=== PATIENT | male | born 1970 | race African-American/Black ===

== ENCOUNTER 2016-11-01 23:30 | Inpatient (IN) ==
[2016-11-01] MEDS ORDERED: ONDANSETRON 4 MG/2 ML VIAL ONE (23:42)
[2016-11-01] MEDS ORDERED: HYDROmorphone 2 MG/1 ML VIAL ONE (23:43)
[2016-11-01] MEDS ORDERED: ceFAZolin 1,000 MG VIAL ONE (23:43)
[2016-11-01] MEDS ORDERED: HYDROmorphone 2 MG/1 ML VIAL IV STA (23:47)
[2016-11-01] MEDS ORDERED: DIPH/TET/ACEL PERT BOOSTER VACCINE 0.5 ML VIAL IM ONE ×2 (23:47→23:57)
[2016-11-01] MEDS ORDERED: LACTATED RINGERS 1,000 ML IV STA (23:47)
[2016-11-01] MEDS ORDERED: ONDANSETRON 4 MG/2 ML VIAL IV STA (23:48)
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
[2016-11-01 23:55] LABS: Basophils # 0.1 10*3/uL (0.0-0.2); Basophils % 0.5 % (0.0-0.8); Eosinophils # 0.2 10*3/uL (0.0-0.87); Eosinophils % 1.3 % (0.00-10.9); Hematocrit 41.3 VOL% (42.0-52.0); Hemoglobin 14.2 GM/DL (14.0-18.0); Immature Granulocytes % 0.7 %; Immature Granulocytes Absolute 0.08 #; Lymphocytes # 3.8 10*3/uL (1.4-4.0); Mean Corpuscular HGB Conc 34.4 GM/DL (32-36); Mean Corpuscular Hemoglobin 33 PG (27-34); Mean Corpuscular Volume 94.5 FL (87-102); Mean Platelet Volume 10.6 FL (9.6-12.0); Monocytes # 0.7 10*3/uL (0.11-0.8); Monocytes % 5.5 % (1.7-12.7); Neutrophils # 7.5 10*3/uL (1.4-7.4); Platelet Count 224 T/CUMM (130-400); Red Blood Count 4.37 MC/CUMM (3.8-5.5); Red Cell Distribution Width 13.1 % (9.3-17.3); White Blood Count 12.3 T/CUMM (4-12)
[2016-11-02 00:04] LABS: PT Patient Result 10.1 SECS; Partial Thromboplastin Time 23.8 SECS (0-40)
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
[2016-11-02 00:39] LABS: Calcium 8.4 MG/DL (8.5-10.1)
[2016-11-02 00:40] LABS: Albumin 4.1 G/DL (3.4-5.0); Bilirubin,Total 1.2 MG/DL (0.2-1.0); Total Protein 8.6 G/DL (6.4-8.3)
[2016-11-02 00:41] LABS: Osmolality,Calculated 272.7 MOS/KG (273-304); Potassium 5.7 MMOL/L (3.5-5.1)
[2016-11-02 00:44] LABS: Apearance,Urine CLEAR (Clear); Bilirubin,Urine Negative (Negative); Blood, Urine Small mg/dL (Negative); Glucose,Urine (UA) Negative (Negative); Hyaline Casts,Urine 6 /LPF (0-3); Ketones,Urine Negative (Negative); Mucus,Urine Occasional /LPF (Occasional); Nitrite,Urine Negative (Negative); Protein,Urine Negative; RBC,Urine <1 /HPF (0-4); Urine Color Yellow (Yellow); Urine Specific Gravity 1.005 (1.001-1.035); Urine Urobilinogen < 2.0 EU/DL (0.2-1.0); WBC,Urine <1 /HPF (0-6)
[2016-11-02 00:54] LABS: Barbiturates Screen,Urine Negative (Negative); Benzodiazepines Screen,Urine Negative (Negative); Cannabinoid Screen,Urine Positive (Negative); Opiate Screen,Urine Positive (Negative); Phencyclidine Screen,Urine Negative (Negative)
--- NOTE | 2016-11-02 00:57 | Event Note ---
11/02/2016 00 56 hours CTA was performed of the lower extremity appears that the vessels are intact and look without any evidence of injury.
[2016-11-02] MEDS ORDERED: ACETAMINOPHEN 325 MG TABLET PO PRN (01:05)
[2016-11-02] MEDS ORDERED: ALUMINUM/MAGNES/SIMETH MAX STR 30 ML UDCUP PO PRN (01:05)
[2016-11-02] MEDS ORDERED: ONDANSETRON 4 MG/2 ML VIAL IV PRN ×2 (01:05→11:41)
[2016-11-02] MEDS ORDERED: HYDROmorphone 2 MG/1 ML VIAL ONE ×2 (01:46→11:31)
[2016-11-02] MEDS: HYDROmorphone 2 MG/1 ML VIAL IV PRN ×5 (02:02→11:40)
[2016-11-02] MEDS: DEXTROSE 5% NACL 0.45% 1,000 ML IV SCH ×2 (02:42→12:15)
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
--- NOTE | 2016-11-02 07:13 | XRay Report ---
Referring Physician: Geoff Wood Exam: XR chest 1V portable Date: November 02, 2016 at 1:16 AM Reason: Preoperative respiratory evaluation for leg fracture Comparison: None Findings: The cardiac silhouette is normal in size. No focal consolidation, pneumothorax or pleural effusion is identified. No acute osseous process is seen. Impression: No acute cardiopulmonary process is identified. PROCEDURE INTERPRETED AT [facility] DEPARTMENT OF RADIOLOGY Final Report Signed by: Dr. Mckayla Baez
--- NOTE | 2016-11-02 07:38 | EKG Report ---
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
--- NOTE | 2016-11-02 07:45 | Orthopedic Consult Note ---
History of Present Illness Chief complaint: Left tibia fracture History of present illness: Mr. Carey is a 46 year old male See dictated report Home Medications Medication Instructions Recorded Confirmed Type No Known Home Medications [No 11/02/16 11/02/16 History Known Home Medications] Allergies Allergy/AdvReac Type Severity Reaction Status Date / Time No Known Allergies Allergy Unverified 11/01/16 23:56 Medical,Surgical,& Family Hx - Medical History Cardio: No history of: Hypertension Endocrine: No history of: Diabetes Mellitus (IDDM) Gastrointestinal: History of: Hemorrhoids Musculoskeletal: History of: Musculoskeletal Problems (SCOLIOSIS) - Family History Family History: Reports;: Family Heart Disease (FATHER (TRIPLE BYPASS), MOTHER ( STENTS)) - Social History Smoking Status: Current every day smoker Frequency of Alcohol Use: Frequently Type of Drug Use: Marijuana Exam - Constitutional Vitals: Period Temp Pulse Resp BP Sys/Tomlinson Pulse Ox Last 24 Hr 97.5 F-98.1 F 84-115 20-20 113-114/67-69 99-99 Results - Labs CBC & BMP: 11/01/16 23:42 11/01/16 23:42 Specialty Discharge - Follow Up or Referrals
[2016-11-02 08:46] LABS: Basophils # 0.1 10*3/uL (0.0-0.2); Basophils % 0.4 % (0.0-0.8); Eosinophils % 0.3 % (0.00-10.9); Hematocrit 37.4 VOL% (42.0-52.0); Hemoglobin 13.2 GM/DL (14.0-18.0); Immature Granulocytes % 0.6 %; Immature Granulocytes Absolute 0.07 #; Lymphocytes # 2.4 10*3/uL (1.4-4.0); Lymphocytes % 18.7 % (21.2-54.2); Mean Corpuscular HGB Conc 35.3 GM/DL (32-36); Mean Corpuscular Hemoglobin 33 PG (27-34); Mean Corpuscular Volume 92.1 FL (87-102); Mean Platelet Volume 9.7 FL (9.6-12.0); Monocytes % 7.8 % (1.7-12.7); Neutrophils # 9.1 10*3/uL (1.4-7.4); Neutrophils % 72.2 % (38.7-73.9); Platelet Count 188 T/CUMM (130-400); Red Blood Count 4.06 MC/CUMM (3.8-5.5); Red Cell Distribution Width 13.1 % (9.3-17.3); White Blood Count 12.6 T/CUMM (4-12)
[2016-11-02 09:11] LABS: Calcium 8.2 MG/DL (8.5-10.1); Osmolality,Calculated 271.7 MOS/KG (273-304); Potassium 4.3 MMOL/L (3.5-5.1)
[2016-11-02] MEDS ORDERED: SODIUM CHLORIDE 0.9% 100 ML IV ONE (09:12)
[2016-11-02] MEDS: DOCUSATE SODIUM 100 MG CAPSULE PO SCH ×2 (09:20→20:00)
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
[2016-11-02] MEDS ORDERED: MAGNESIUM HYDROXIDE SUSP 30 ML UDCUP PO PRN (09:29)
[2016-11-02] MEDS ORDERED: PROMETHAZINE 25 MG/1 ML VIAL IM PRN (09:29)
[2016-11-02] MEDS: PANTOPRAZOLE 40 MG VIAL IV SCH (09:33)
[2016-11-02] MEDS ORDERED: LIDOCAINE 1% 5 ML VIAL ONE (09:47)
[2016-11-02] MEDS ORDERED: ONDANSETRON 4 MG/2 ML VIAL ONE ×2 (09:47→11:31)
[2016-11-02] MEDS ORDERED: NEOSTIGMINE 10 MG/10 ML VIAL ONE (09:47)
[2016-11-02] MEDS ORDERED: PROPOFOL 200 MG/20 ML VIAL IV ONE (09:47)
[2016-11-02] MEDS ORDERED: ROCURONIUM 100 MG/10 ML VIAL IV ONE (09:47)
[2016-11-02] MEDS ORDERED: GLYCOPYRROLATE 0.4 MG/2 ML VIAL ONE (09:47)
[2016-11-02] MEDS ORDERED: PHENYLEPHRINE 1 MG/10 ML SYRINGE IV ONE (09:47)
[2016-11-02] MEDS: HYDROmorphone PCA 30 MG/30 ML SYRINGE IV SCH (11:45)
[2016-11-02] MEDS ORDERED: HYDROmorphone PCA 30 MG/30 ML SYRINGE IV ONE (11:45)
[2016-11-02] MEDS ORDERED: LACTATED RINGERS 1,000 ML IV SCH (12:00)
[2016-11-02] MEDS ORDERED: MIDAZOLAM 2 MG/2 ML VIAL ONE (13:25)
[2016-11-02] MEDS ORDERED: DESFLURANE 1 UNIT/15 MINUTE INH ONE (13:25)
[2016-11-02] MEDS ORDERED: ACETAMINOPHEN 1,000 MG/100 ML VIAL IV ONE (13:25)
[2016-11-02] MEDS ORDERED: fentaNYL 100 MCG/2 ML VIAL ONE (13:25)
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
--- NOTE | 2016-11-02 14:42 | XRay Report ---
XR tibia fibula LT Indication: I am nail tibia. Left leg fluoroscopy: 64 seconds. 7 captured images. Sequential fluoroscopic images of the left leg demonstrate a tibial IM nail securing a mid shaft fracture in anatomic alignment. Impression: Anatomic alignment following IM nail placement. PROCEDURE INTERPRETED AT [facility] DEPARTMENT OF RADIOLOGY Final Report Signed by: Dameon Sanchez M.D.
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
--- NOTE | 2016-11-03 09:34 | Orthopedic Progress Note ---
Orthopedics - Subjective Interval history: Appears comfortable neurovascular intact. 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
[2016-11-03] MEDS: DOCUSATE SODIUM 100 MG CAPSULE PO SCH ×2 (09:54→20:12)
[2016-11-03] MEDS: PANTOPRAZOLE 40 MG VIAL IV SCH (09:54)
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
[2016-11-03] MEDS: HYDROmorphone PCA 30 MG/30 ML SYRINGE IV SCH (19:43)
[2016-11-04] MEDS: DEXTROSE 5% NACL 0.45% 1,000 ML IV SCH (05:36)
[2016-11-04 07:48] VITALS: BP 133/77
[2016-11-04] MEDS: DOCUSATE SODIUM 100 MG CAPSULE PO SCH (08:29)
[2016-11-04] MEDS: PANTOPRAZOLE 40 MG VIAL IV SCH (08:29)
--- NOTE | 2016-11-04 08:30 | Orthopedic Progress Note ---
Orthopedics - Subjective Interval history: Comfortable mobilizing better tolerating p.o. pain medications ready for discharge instructed Exam - Constitutional Vitals: Period Temp Pulse Resp BP Sys/Tom[place]inson Pulse Ox Last 24 Hr 97.8 F-99.5 F 74-86 16-20 123-144/69-84 98-100 Results - Labs CBC & BMP: 11/02/16 08:18 11/02/16 08:18 Quality Measures - VTE Contraindication to Pharmacological VTE Prophylaxis: High Risk of Bleeding Specialty Discharge - Follow Up or Referrals Follow up with: Francisco Callejas Jr., MD [Physician] -
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
== END 2016-11-04 10:35 | disposition home or self-care (01) | DRG 494 ==
LOC: N.ED 23:30 → N.EDINP 11-02 01:05 → N.3E 11-02 02:24
PROVIDERS: ADMIT Specialist; ATTEND Specialist